=== PATIENT | female | born 1955 | race Asian ===

== ENCOUNTER 2016-09-25 10:49 | Outpatient (CLI) | payer OTHER | END 2016-09-25 19:34 | disposition home or self-care (01) | LOC: SRD 10:49 | PROVIDERS: ATTEND Internal Medicine | DX: M16.11 Unilateral primary osteoarthritis, right hip (principal); M85.80 Other specified disorders of bone density and structure, unspecified site; Q76.49 Other congenital malformations of spine, not associated with scoliosis; Z90.49 Acquired absence of other specified parts of digestive tract; M79.89 Other specified soft tissue disorders | CPT/HCPCS: 72110; 73552 ==

== ENCOUNTER 2016-11-02 10:01 | Outpatient (CLI) | payer OTHER ==
[2016-11-02 10:55] LABS: BILIRUBIN,URINE NEGATIVE (NEGATIVE); BLOOD, URINE NEGATIVE (NEGATIVE); CLARITY/URINE CLEAR (CLEAR); COLOR,URINE YELLOW (YELLOW); GLUCOSE,URINE NEGATIVE (NEGATIVE); KETONES,URINE NEGATIVE (NEGATIVE); LEUKOCYTE ESTERASE ,URINE 2+ (NEGATIVE); NITRITE, URINE NEGATIVE (NEGATIVE); PROTEIN URINE NEGATIVE (NEGATIVE); UROBILINOGEN,URINE 0.2 (0.2-1.0)
[2016-11-02 11:11] LABS: BACTERIA,URINE FEW /HPF (None Seen); RBC,URINE 0-3 /HPF (0-3)
[2016-11-02 11:12] LABS: BASOPHILS # (AUTO) 0.1 K/uL (0.0-0.2); BASOPHILS % (AUTO) 0.8 % (0.0-2.0); EOSINOPHILS # (AUTO) 0.1 K/uL (0.0-0.4); EOSINOPHILS % (AUTO) 1.2 % (0.0-4.0); HEMATOCRIT 43.2 % (36-48); HEMOGLOBIN 14.4 g/dL (12.0-16.0); LYMPHOCYTES % (AUTO) 30.9 % (20.5-51.5); MEAN CORPUSCULAR HEMOGLOBIN 29 pg (27-31); MEAN CORPUSCULAR HGB CONC 34 % (32-36); MEAN CORPUSCULAR VOLUME 88 fL (79.0-98.0); MONOCYTES # (AUTO) 0.3 K/uL (0.0-1.0); MONOCYTES % (AUTO) 4.1 % (1.7-9.3); PLATELET COUNT (AUTO) 305 K/uL (130-430); RED BLOOD CELL COUNT(AUTO) 4.91 MIL/uL (4.2-6.2); RED CELL DISTRIBUTION WIDTH 12.5 % (9.0-15.0); WHITE BLOOD COUNT (AUTO) 6.5 K/uL (4.8-10.8); YEAST,URINE None Seen /HPF (None Seen)
[2016-11-02 11:31] LABS: CALCIUM 9.1 mg/dL (8.4-11.0); CREATININE 0.66 mg/dL (0.55-1.30); POTASSIUM 3.8 mmol/L (3.5-5.1); THYROID STIMULATING HORMONE 1.06 uIu/mL (0.34-4.82); TOTAL BILIRUBIN 0.5 mg/dL (0.0-1.0); TOTAL PROTEIN, SERUM 7.8 g/dL (6.4-8.3)
[2016-11-02 19:55] LABS: POTASSIUM,URINE RANDOM 45 mmol/L (12-75); URINE SODIUM, RANDOM 115 mmol/L (40-220)
[2016-11-03 10:07] LABS: HEMOGLOBIN A1C 6.1 % (4.8-5.6)
== END 2016-11-02 19:00 | disposition home or self-care (01) ==
LOC: SLB 10:01
PROVIDERS: ATTEND Internal Medicine
DX: E78.5 Hyperlipidemia, unspecified (principal); R73.9 Hyperglycemia, unspecified
CPT/HCPCS: 36415; 80053; 80061; 81000-TC; 82306; 82607; 83036; 83735-TC; 84302-TC; 84439; 84443-TC; 84999-TC; 85025

== ENCOUNTER 2016-12-10 08:55 | Outpatient (CLI) | payer OTHER | END 2016-12-10 20:45 | disposition home or self-care (01) | LOC: SLB 08:55 | PROVIDERS: ATTEND Internal Medicine | DX: N39.0 Urinary tract infection, site not specified (principal) | CPT/HCPCS: 87086 ==